=== PATIENT | male | born 1990 | race Caucasian/White ===

== ENCOUNTER 2019-03-14 20:58 | Emergency (ER) | payer OTHER, SELFPAY ==
[~2019-03-14] VITALS: Ht 185.4 cm; Wt 90.9 kg
[2019-03-14 20:59] VITALS: BP 127/86
[2019-03-14] MEDS ORDERED: AUGMENTIN 875 MG TAB PO ONE (21:30)
[2019-03-14] MEDS ORDERED: IBUPROFEN 600 MG TAB PO ONE (21:30)
[2019-03-14] MEDS ORDERED: AUGM875T28 PO (21:34)
[2019-03-14] MEDS ORDERED: IBUP-1022 PO ×2 (21:34→21:43)
== END 2019-03-14 21:46 | disposition home or self-care (01) ==
LOC: M ED 20:58
DX: L03.113 Cellulitis of right upper limb (principal)